=== PATIENT | female | born 1965 | race Caucasian/White ===

== ENCOUNTER 2018-03-09 19:17 | Emergency (ER) | payer BC ==
[2015-08-05 08:40] VITALS: Wt 86.2 kg
[~2018-03-09 19:17] MED LIST: ARI2 PO; BUPR-147 PO; BUPR-474 PO; CANA300T PO; CLON-1 PO; DOXE10CA25 PO; HYDR25CA13 PO; HYDR25CA83 PO; LAMO25TA64 PO; LIRA0.6P3 SQ; LISI-362 PO; METF-421 PO; MIRT-17 PO; MULT-1379 PO; PIOG15TA14 PO; PRAZ1CAP26 PO; SERT-173 PO; SIMV-54 PO; TRAZ-156 PO; ZOLP-350 PO
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
[2018-03-09 20:00] VITALS: BP 136/85
[2018-03-09 20:24] LABS: PLATELET COUNT, AUTOMATED 122 K/uL (150-450)
[2018-03-09] MEDS ORDERED: BUPR-133 PO (20:33)
[2018-03-09] MEDS ORDERED: ZOLP-350 PO (20:33)
[2018-03-09] MEDS ORDERED: OLAN10TA25 PO (20:33)
[2018-03-10] MEDS ORDERED: MULT-1379 PO (14:57)
[2018-03-10] MEDS ORDERED: OLAN5TAB27 PO (14:57)
[2018-03-10] MEDS ORDERED: PRAZ1CAP26 PO (14:57)
[2018-03-10] MEDS ORDERED: SERT-184 PO (14:57)
[2018-03-10] MEDS ORDERED: BUPR-147 PO (14:57)
[2018-03-10] MEDS ORDERED: ZOLP-350 PO (14:57)
[2018-03-10] MEDS ORDERED: LAMO100T56 PO (14:57)
[2018-03-10] MEDS ORDERED: MIRT-22 PO (14:57)
== END 2018-03-09 21:47 ==
LOC: ER 19:35
DX: F33.2 Major depressive disorder, recurrent severe without psychotic features (principal)
CPT/HCPCS: 36415; 80305; 80320; 80329; 81001; 82040; 82247; 82310; 82374; 82435; 82565; 82947; 83735; 84075; 84132; 84155; 84295; 84443; 84450; 84460; 84520; 84703; 85025; 87088; 99285

== ENCOUNTER 2018-03-09 21:30 | Inpatient (IN) | payer BC ==
[2015-08-05 08:40] VITALS: Ht 170.2 cm; Wt 86.3 kg
[~2018-03-09] VITALS: Ht 170.2 cm; Wt 86.3 kg
[~2018-03-09 21:30] MED LIST changes: +BUPR-133 PO; +OLAN10TA25 PO
[2018-03-09] MEDS ORDERED: PRAZOSIN HCL 1 MG CAP PO SCH (22:35)
[2018-03-09] MEDS ORDERED: OLANZapine 5 MG TAB PO PRN (22:35)
[2018-03-09] MEDS: MIRTAZAPINE 15 MG TAB PO SCH (23:10)
[2018-03-10 05:09] VITALS: BP 133/97
[2018-03-10] MEDS: lamoTRIgine 100 MG TAB PO SCH (11:31)
[2018-03-10] MEDS: MULTIVITAMINS TAB PO SCH (11:31)
[2018-03-10] MEDS: SERTRALINE HCL 50 MG TAB PO SCH (11:32)
[2018-03-10] MEDS: buPROPion IR 75 MG TAB PO SCH (11:32)
[2018-03-10] MEDS ORDERED: PRAZ1CAP26 PO (14:57)
[2018-03-10] MEDS ORDERED: SERT-184 PO (14:57)
[2018-03-10] MEDS ORDERED: MIRT-22 PO (14:57)
[2018-03-10] MEDS ORDERED: MULT-1379 PO (14:57)
[2018-03-10] MEDS ORDERED: ZOLP-350 PO (14:57)
[2018-03-10] MEDS ORDERED: LAMO100T56 PO (14:57)
[2018-03-10] MEDS ORDERED: BUPR-147 PO (14:57)
[2018-03-10] MEDS ORDERED: OLAN5TAB27 PO (14:57)
[2018-03-10 14:58] VITALS: BP 143/92
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
[2018-03-10] MEDS ORDERED: PRAZOSIN HCL 1 MG CAP PO SCH (21:00)
[2018-03-10] MEDS ORDERED: OLANZapine 5 MG TAB PO SCH (21:00)
[2018-03-10] MEDS ORDERED: ZOLPIDEM TARTRATE 10 MG TAB PO SCH (21:00)
[2018-03-10] MEDS ORDERED: ZOLPIDEM TARTRATE 5 MG TAB PO SCH (21:00)
[2018-03-10] MEDS: MIRTAZAPINE 15 MG TAB PO SCH (21:34)
[2018-03-11 03:40] VITALS: BP 132/98
[2018-03-11] MEDS: lamoTRIgine 100 MG TAB PO SCH (08:31)
[2018-03-11] MEDS: buPROPion IR 75 MG TAB PO SCH (08:32)
[2018-03-11] MEDS: MULTIVITAMINS TAB PO SCH (08:32)
[2018-03-11] MEDS: SERTRALINE HCL 50 MG TAB PO SCH (08:32)
[2018-03-11] MEDS ORDERED: SERTRALINE HCL 50 MG TAB PO SCH (09:00)
--- NOTE | 2018-03-15 16:10 | DISCHARGE SUMMARY ---
Patient was seen at approximately 1100 hours on March 11, 2018 for note concerning this dictation. FINAL DIAGNOSES PER DSM-V Major depression, recurrent, moderate. Posttraumatic stress disorder. Sleep apnea, partially treated. Cluster B personality traits. REASON FOR ADMISSION This is becoming a fairly well-known 52-year-old female who lives in the [facility]. She preferentially chooses to be admitted to [facility] for psych concerns. Patient presenting voluntarily to the ER with increasing depression and suicidal thoughts. Please see history and physical for full details. Patient admitted without incident, demonstrating some cluster B personality traits at times on the unit, but overall very cooperative, taking an active role in her care. Patient not engaging in any parasuicidal behaviors on the unit. Patient noted to be partially compliant with treatment including wearing of CPAP machine and medication compliance. However, patient seems to be more fully compliant with therapy and continues to follow up well with outpatient therapist. Patient allowed for medications that were unneeded at home to be destroyed. Patient quickly improved, stating that she would like to go home. Patient stating no longer having suicidal thoughts. Patient engaging with her outpatient therapist on the phone, who also supported the plan. Patient was discharged into the care of family members. PHYSICAL EXAM GENERAL: Please see emergency room note. Notable for a 52-year-old female in no medical distress. VITAL SIGNS: At the time of admission, temperature 98.7, pulse 83, respiratory rate 18, blood pressure 131/55, pulse oximetry 94 on room air. At the time of discharge from Behavioral Health Unit, vital signs showed a temperature of 98.2 , pulse 66, respiratory rate 16, blood pressure 132/98 and pulse oximetry 91% on room air. LABORATORY DATA Hemoglobin A1c was slightly elevated at 6.8. Patient has a history of diabetes , largely prior to weight loss secondary to gastric bypass. Vitamin B12 and folate levels were 250 and 17.9, both in normal range. CBC was remarkable for platelets slightly low at 122, otherwise unremarkable CBC. CMP notable for AST and ALT slightly elevated at 42 and 72. Random glucose 163 upon admission. TSH 3.14. screen negative. Urinalysis unremarkable and toxicology screen negative with a nondetectable serum alcohol level. MENTAL STATUS EXAMINATION AT THE TIME OF DISCHARGE GENERAL APPEARANCE, BEHAVIOR AND ATTITUDE: This is a pleasant 52-year-old female, making improved eye contact with this provider. Patient joking appropriately. Patient seems to like to engage in random banter at times, but patient very appropriate overall. Patient interacting well with her daughter present in the room, therapist from [facility] as well as her outpatient therapist on the phone. SPEECH: Within normal limits, regular rate, rhythm volume and tone. MOOD: Described as improved. AFFECT: Full and mood congruent. THOUGHT PROCESSES: Goal directed, logical. No loose associations or flight of ideas. THOUGHT CONTENT: Free of auditory or visual hallucinations, ideas of reference , thought broadcastings, delusions, obsessions, compulsions. Patient adamantly denying suicidal or homicidal ideation at the time of discharge. SENSORIUM: Clear. COGNITION: Alert and oriented to person, place, time and situation. MEMORY: Immediate, recent and remote estimated intact. INTELLIGENCE: Average based on interview. INSIGHT AND JUDGMENT: Limited by some maladaptive stress coping mechanisms and personality traits. However, patient taking an active role in her treatment, presenting voluntarily for brief suicidal ideation to the hospital. Patient continues to follow up with well at least with therapist on an outpatient basis. RESULTS OF TESTING IMAGING: None. LABORATORY DATA: See above. CONSULTATIONS: None. TREATMENT Patient maintained current medications and participated in individual and group therapy. HOSPITAL COURSE This is a well-known patient who has a history of brief stays here at [facility]. Patient was continued on Ambien and was instructed to take 5 mg at bedtime at home. Patient has been on Ambien at 10 mg for quite some time. Patient stated she would do this. Patient was continued on Lamictal, Remeron, Minipress, Wellbutrin and Zoloft and Zyprexa. Patient continued to do well. Once again the importance of taking medications as prescribed and the wearing of CPAP machine, which patient did bring to the unit and use, was emphasized and patient indicated an understanding. CONDITION OF PATIENT ON DISCHARGE Stable. Considered minimal risk to herself or others and appropriate for outpatient care. DISPOSITION Patient discharged to home in the care of her family members. MEDICATIONS 1. Ambien 5 mg at bedtime. 2. Lamictal 100 mg every morning. 3. Minipress 1 mg at bedtime. 4. Remeron 15 mg at bedtime. 5. Multivitamin with minerals daily. 6. Wellbutrin 75 mg every morning. 7. Zoloft 50 mg daily. 8. Zyprexa 5 mg at bedtime. Patient had all of these medications at home. Patient once again indicated an understanding of the importance to take medications as prescribed, lower Ambien use and wear CPAP machine. Risks, benefits and alternatives of the above discharge plan were discussed. Informed consent was given to proceed with above discharge plan by this competent patient, patient's family members present and patient's outpatient therapist. HARVEY
== END 2018-03-11 13:03 | disposition home or self-care (01) | DRG 885 ==
LOC: BHS 21:30
PROVIDERS: ADMIT Psychiatry & Neurology Psychiatry; ATTEND Psychiatry & Neurology Psychiatry
DX: F33.1 Major depressive disorder, recurrent, moderate (principal); R45.851 Suicidal ideations; F43.12 Post-traumatic stress disorder, chronic; G47.30 Sleep apnea, unspecified; Z62.810 Personal history of physical and sexual abuse in childhood; Z98.84 Bariatric surgery status; Z91.5 Personal history of self-harm; Z81.1 Family history of alcohol abuse and dependence; Z81.3 Family history of other psychoactive substance abuse and dependence; Z88.8 Allergy status to other drugs, medicaments and biological substances; Z91.19 Patient's noncompliance with other medical treatment and regimen
CPT/HCPCS: 36415; 82607; 82746; 83036; 90853; J3490